=== PATIENT | male | born 1950 | race Caucasian/White ===

== ENCOUNTER 2024-10-24 18:56 | Observation (INO) | payer MEDICARE, OTHER, SELFPAY ==
[2024-10-24 14:25] VITALS: BP 172/84
[2024-10-24 14:32] LABS: Glucose - Point of Care 106 mg/dl (70-99)
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
[2024-10-24 16:37] VITALS: BP 148/68
[2024-10-24 16:50] LABS: % Basophils 0.2 % (0-2); % Eosinophils 0.1 % (0-6); % Immature Granulocytes 0.3 % (0-0.5); % Lymphocytes 13.1 % (20.5-51.1); % Monocytes 5.1 % (1.7-9.3); % Neutrophils 81.2 % (42.2-75.2); Absolute Lymphocytes 1.2 10^3/uL (1.2-3.4); Absolute Monocytes 0.5 10^3/uL (0.1-0.6); Absolute Neutrophils 7.2 10^3/uL (1.4-6.5); Hematocrit 43.4 % (39.0-52.0); Hemoglobin 15.5 g/dL (13.0-18.0); Mean Corp Hgb Conc. 35.7 g/dL (33.0-37.0); Mean Corpuscular Hgb 31.9 pg (27.0-31.0); Mean Corpuscular Volume 89.3 fL (80.0-94.0); Mean Platelet Volume 9.6 fL (7.4-10.4); Nucleated Red Blood Cells % 0 % (-); Platelet Count 141 10^3/uL (130-400); Red Blood Cell Count 4.86 10^6/uL (4.70-6.10); Red Cell Dist. Width 12.8 % (11.5-14.5); White Blood Cell Count 8.9 10^3/uL (4.8-10.8)
[2024-10-24 17:00] VITALS: BP 145/71
[2024-10-24 17:07] LABS: ALT (SGPT) 17 U/L (0-50); AST (SGOT) 29 U/L (17-59); Albumin 4.1 g/dl (3.5-5.0); Alkaline Phosphatase 67 U/L (38-126); Blood Urea Nitrogen 22 mg/dl (9-20); Calcium 9.7 mg/dl (8.4-10.2); Carbon Dioxide 32 mmol/L (22-30); Chloride 100 mmol/L (98-107); Glucose 105 mg/dl (70-99); Potassium 4.4 mmol/L (3.5-5.1); Sodium 136 mmol/L (135-145); Total Bilirubin 1.4 mg/dl (0.2-1.3); Total Protein 6.6 g/dl (6.3-8.2); eGFR > 60.00
[2024-10-24 17:20] LABS: INR 1.01; PT 13.6 Sec (11.4-14.6)
[2024-10-24 17:21] LABS: APTT 28.4 Sec (23.4-35.0)
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
[2024-10-24 18:00] VITALS: BP 154/76
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
[2024-10-24 18:57] LABS: Magnesium 1.7 mg/dl (1.6-2.3)
[2024-10-24 19:02] VITALS: BMI 27.0
[2024-10-24] MEDS: LOW STRENGTH ASPIRIN 81 MG PO (19:41)
[2024-10-24 20:20] VITALS: BP 165/78; BMI 26.5
[2024-10-24 20:46] LABS: Direct Bilirubin 0.3 mg/dl (0.0-0.4)
[2024-10-24 23:30] VITALS: BP 163/82
[2024-10-25 00:30] LABS: Amphetamines Negative (Negative); Barbiturates Negative (Negative); Benzodiazepines Negative (Negative); Buprenorphine Negative (Negative); Cocaine Negative (Negative); Marijuana Negative (Negative); Methadone Negative (Negative); Methamphetamines Negative (Negative); Opiates Negative (Negative); Phencyclidine Negative (Negative); Tricyclic Antidepressants Negative (Negative)
[2024-10-25 03:30] VITALS: BP 150/76
[2024-10-25 05:43] LABS: HDL Cholesterol 27 mg/dl; LDL Cholesterol, Calculated 110 mg/dl; Total Cholesterol 171 mg/dl (50-199); Triglyceride 173 mg/dl (10-149); Very Low Density Lipoprotein 34 mg/dl (0-30)
[2024-10-25 06:00] VITALS: BMI 26.4
[2024-10-25 07:00] VITALS: BP 146/75
[2024-10-25] MEDS: LOW STRENGTH ASPIRIN 81 MG PO (08:56)
[2024-10-25 09:41] LABS: Glycohemoglobin (HgbA1c) 5.6 % (4.0-5.6)
--- NOTE | 2024-10-25 10:18 | PTOTSP ---
Addendum entered and electronically signed by ST Renee 10/25/24 10:27:
Addendum to plan:
Patient appears to be demonstrating his baseline functioning from a speech standpoint, TELEGRAPH OFFICE ROUTE AIDE will sign off at this time. Please re-consult if clinically indicated.
Original Note:
Speech Therapy
Presentation: Patient's speech and language appeared to be WNL during informal conversations with the TELEGRAPH OFFICE ROUTE AIDE. Patient denied any communicative deficits.
Swallowing Function: TELEGRAPH OFFICE ROUTE AIDE observed patient with several bites of regular consistency solids and sips (straw) of thin liquids in which patient appeared to tolerate as he did not exhibit any overt clinical s/sx of aspiration or difficulty with
mastication. Patient denied any dysphagia complaints.
Per RN, patient tolerated medications whole with thin liquids and meal tray (reg/ thin).
Recommendations:
1) Regular consistency solids and thin liquids
2) Standard aspiration precautions
3) Medications as tolerated
Plan: TELEGRAPH OFFICE ROUTE AIDE will continue to follow; pending hospitalization.
--- NOTE | 2024-10-25 10:28 | CM ---
Spoke with patient's daughter to obtain information for assessment. Patient lives with his in two story home with two steps to enter. He is independent with all of his ADLs, personal care, dressing and bathing. 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
clean and do laundry. He drives and can get to appointments and so his own shopping. He has never had VN services. He has not been to a SNF.
He has a prescription plan and uses, [facility] for all of his medications.
OBS letter reviewed, signed and on chart.
Plan: Case management will continue to follow and assist with discharge planning. Hopefully home no needs.
--- NOTE | 2024-10-25 10:32 | W.PN.NEURO.1 ---
Today's Communication / Plan
-
.
Subjective/Objective
Subjective Data
Date of Service: October 25, 2024
Neurology follow-up note. Mr. Kwon reports no complaints.
His blood pressure has improved, remains afebrile. No reports of headaches, change in vision or strength.
Brain MRI�no acute abnormalities
PMH: h/o SVT, HTN, IGT, DLP, CKD, migraine headache, BCC, T3 N1 M0 sigmoid adenocarcinoma (2010, status post chemo), urolithiasis, polyneuropathy.
PSH: sigmoidectomy, lithotripsy, left [id number]-[id number](removed), right inguinal hernia repair
SH: Non-smoker,
FH: Mother at the age of 92, father at the age of 87 from stroke.
All: Epinephrine
ROS: Constitutional: Negative. Negative for chills, fever and unexpected weight change.
HENT: Positive for hearing impairment
Eyes: Negative. Negative for photophobia, pain and visual disturbance.
Respiratory: Negative for cough, choking and shortness of breath.
Cardiovascular: Negative for chest pain, palpitations and leg swelling.
Gastrointestinal: Negative for abdominal pain and vomiting.
Endocrine: Negative. Negative for cold intolerance.
Genitourinary: Negative for dysuria, flank pain and urgency.
Musculoskeletal: Negative for back pain, gait problem, neck pain and neck stiffness.
Skin: Negative for rash.
Allergic/Immunologic: Negative. Negative for immunocompromised state.
Neurological: Positive for transient encephalopathy, chronic distal paresthesias
Psychiatric/Behavioral: Negative for behavioral problems, confusion and hallucinations.
General: Well developed. In no acute distress.
Cardio: Regular rate and rhythm without murmur. Extremities are without cyanosis or edema.
Neuro:
Mental Status: Alert, oriented to person, place, and date. Normal attention and recall. Good fund of knowledge. Follows complex requests across the midline. Comprehension, naming, and repetition intact. Anxious
Cranial Nerves: Pupils are equally round and reactive to light. EOMs full. Visual vasquez full to confrontation. No ptosis. No nystagmus. V1-V3 intact to light touch and pinprick bilaterally, symmetric. Face symmetric. Impaired hearing AU.
The palate elevated well. SCMs and traps 5/5. Tongue midline. No dysarthria.
Motor: Normal bulk and tone. No pronator or arm drift. Strength 5/5 throughout. No clonus.
Reflexes: 3+ throughout the upper extremities and 3 knees. 2/2 in AJs. Positive Yaritza's bilaterally plantar responses flexor bilaterally.
Sensory: Reduced vibration at the toes and preserved at the ankles.
Coordination: No dysmetria or tremor.
Gait: deferred
Assessment and Plan:
I. Recurrent spells of encephalopathy. CPS versus cardiac arrhythmias\\
II. History of SVT
III. 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
IV. Hyperreflexia
-Fall precautions
-Telemetry monitoring
-Brain MRI without reji
-Routine EEG (can be done as outpatient)
-Cardiology consult
-No driving until cleared by neurology
-Outpatient neurology follow-up.
I personally reviewed all radiology and labs along with past medical records pertinent to current medical problems. Total time spent in patient care is 37 minutes.
Thank you for allowing us to participate in the care of this patient. Please do not hesitate to contact us with any questions or concerns.
Objective Data
Vital Signs
Temp Pulse Resp BP Pulse Ox
36.5 C 52 18 146/75 99
10/25/24 07:00 10/25/24 07:00 10/25/24 07:00 10/25/24 07:00 10/25/24 07:00
Lab Results
10/24/24 16:32
10/24/24 16:32
PT 13.6 Sec (11.4-14.6) 10/24/24 16:32
INR 1.01 10/24/24 16:32
APTT 28.4 Sec (23.4-35.0) 10/24/24 16:32
Sodium 136 mmol/L (135-145) 10/24/24 16:32
Potassium 4.4 mmol/L (3.5-5.1) 10/24/24 16:32
BUN 22 mg/dl (9-20) H 10/24/24 16:32
Glucose 105 mg/dl (70-99) H 10/24/24 16:32
Calcium 9.7 mg/dl (8.4-10.2) 10/24/24 16:32
LDL Cholesterol, Calc 110 mg/dl 10/25/24 04:26
Ur Buprenorphine Negative (Negative) 10/25/24 00:08
Patient Allergies
epinephrine Allergy (Verified 10/24/24 14:28)
severe tachycardia
poison erick Allergy (Uncoded 10/24/24 14:28)
welts
Vital Signs and Labs
-
Vital Signs and Labs:
Vital Signs
Temp Pulse Resp BP Pulse Ox
36.6 C 54 18 149/82 97
10/25/24 11:00 10/25/24 11:00 10/25/24 11:00 10/25/24 11:00 10/25/24 11:00
Lab Results
10/24/24 16:32
10/24/24 16:32
PT 13.6 Sec (11.4-14.6) 10/24/24 16:32
INR 1.01 10/24/24 16:32
APTT 28.4 Sec (23.4-35.0) 10/24/24 16:32
Sodium 136 mmol/L (135-145) 10/24/24 16:32
Potassium 4.4 mmol/L (3.5-5.1) 10/24/24 16:32
BUN 22 mg/dl (9-20) H 10/24/24 16:32
Glucose 105 mg/dl (70-99) H 10/24/24 16:32
Calcium 9.7 mg/dl (8.4-10.2) 10/24/24 16:32
LDL Cholesterol, Calc 110 mg/dl 10/25/24 04:26
Ur Buprenorphine Negative (Negative) 10/25/24 00:08
Medications
-
Medications:
Generic Name Dose Route Start Last Admin
Trade Name Freq PRN Reason Stop Dose Admin
Aspirin 81 mg 10/25/24 08:00 10/25/24 08:56
Aspirin 81 Mg Chewable Tablet PO 11/22/24 07:59 81 mg
DAILY SHAWN Administration
Hydralazine HCl 5 mg 10/24/24 20:13
Hydralazine 20 Mg/Ml Vial IV 11/21/24 20:12
Q6HPRN PRN
sbp>210 or dbp>110
Home Medications
-
Home Medications
chlorthalidone 25 mg tablet 25 mg PO DAILY 10/24/24
metoprolol succinate 50 mg tablet,extended release 24 hr 50 mg PO DAILY 10/24/24
[2024-10-25 11:00] VITALS: BP 149/82
--- NOTE | 2024-10-25 13:35 | CON.CAR ---
Consultation
Consultation Request
Date/Time Consultation Requested: 10/25/24
Date/Time Consultation Performed: 10/25/24
Requesting Provider: Dr. Benedict
Performing Provider: Dr. Norris
Reason for Consultation: TIA
Medical History
-
Chief Complaint: Episode of confusion
History of Present Illness:
I had the pleasure to meet Jose Kwon in room 319�1 for cardiac evaluation of possible TIA symptoms. Jose is a 72-year-old gentleman who has remotely seen my colleague Dr. 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
adenosine to terminate in 2011. He has done well without recurrent arrhythmias; no history of ablation and has been maintained on metoprolol succinate 50 mg daily. He has a past medical history of colon/rectal cancer status post resection and
chemotherapy, kidney stones, and hypertension. He has no history of atrial fibrillation, known coronary artery disease, heart failure/cardiomyopathy, dyslipidemia, thyroid disease, or diabetes. He and his were driving back from [place] when
his noted that he was driving very slowly and asked him to seat cover cutter. He initially thought his driving was off because he suffers from neuropathy of his feet. Apparently his motions were slow and erratic with him going over the curb before
stopping. He was able to exit the car and walk unassisted without weakness to the passenger side. He reports that his and him did not notice any focal weakness, facial asymmetry, slurred speech or dysarthria. When he returned home he was
able to help his bring the groceries in from the car and started working on a puzzle with no further confusion symptoms. However, at the behest of his and son he went to urgent care and was later sent to the ER for further evaluation.
Fortunately he has had no recurrent neurologic symptoms.
.
CT head 10/24/24 with no acute intracranial abnormality. Small vessel chronic ischemic changes. Paranasal sinuses are clear. MRI of the brain 10/25/2024 with no acute intracranial abnormality with minimal age-related atrophy and small vessel ischemic
disease. EKG sinus bradycardia with right bundle branch block and left anterior fascicular block which is new when compared to 2015 study. Pertinent labs: Hemoglobin 15, WBC 8.9, platelets 141,000. Sodium 136, potassium 4.4. BUN and creatinine
22/1.2. Hemoglobin A1c 5.6. Total cholesterol 171, triglycerides 173, LDL 110, HDL 27. UDS negative
PMH: h/o SVT, HTN,migraine headache, BCC, T3 N1 M0 sigmoid adenocarcinoma (2010, status post chemo), urolithiasis, polyneuropathy.
PSH: sigmoidectomy, lithotripsy, left [id number](removed), right inguinal hernia repair
Past Medical History
Past Medical History: Other (See HPI)
Past Surgical History: Other (See HPI)
Social History
Tobacco: Non-Smoker
Alcohol: None
Drug: None
Personal:
Living: With Family
Employment: Retired (Previously worked for [employer])
Family History
Family History: Reviewed & Not Pertinent
Allergies / Home Medications
Allergy/AdvReac Type Severity Reaction Status Date / Time
epinephrine Allergy severe Verified 10/24/24 14:28
tachycardia
poison erick Allergy welts Uncoded 10/24/24 14:28
�Medication �Instructions �Recorded �Confirmed �Type
chlorthalidone 25 mg tablet 25 mg PO DAILY 10/24/24 10/24/24 History
metoprolol succinate 50 mg 50 mg PO DAILY 10/24/24 10/24/24 History
tablet,extended release 24 hr
Review of Systems
-
History Source: Patient
All other systems: Negative unless noted
Constitutional: No Symptoms
EENT: No Symptoms
Respiratory: No Symptoms
Cardiac: No Symptoms
Abdomen/GI: No Symptoms
: No Symptoms
Musculoskeletal: No Symptoms
Neurological: Other (Episode of confusion as reported in HPI)
Endocrine: No Symptoms
Hematologic/Lymphatic: No Symptoms
Physical Exam
Vital Signs
Temp Pulse Resp BP Pulse Ox
97.8 F 54 18 149/82 97
10/25/24 11:00 10/25/24 11:00 10/25/24 11:00 10/25/24 11:00 10/25/24 11:00
Lab Results
10/24/24 16:32
10/24/24 16:32
Physical Exam
General: Well Developed, Well Nourished, No Apparent Distress and Comfortable
HEENT: Normocephalic, Anicteric and Moist Mucous Membranes
Respiratory: Clear and Non Labored Respirations; Negative Wheezes, Crackles or Rhonchi
Cardiac: S1/S2 and Regular Rhythm; Negative Murmur, Rub, Peripheral Edema or JVD
GI: Soft, Non Tender, Non Distended and Normal Bowel Sounds
Neuro: AO x 3 and Nonfocal/Grossly Intact
Psych: Calm
Impression / Plan
-
Change Agent: Remotely seen by Dr. Zhou
Impression:
Episode of confusion, possible TIA
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
Abnormal EKG with new right bundle branch block/left anterior fascicular block when compared to 2015 study
Sinus bradycardia on metoprolol Succinate
Hypertension
History of colon/rectal cancer status post resection and chemotherapy
Polyneuropathy
2D echocardiogram 10/14/2014: Normal biventricular size and systolic function with EF 55-60% and no regional wall motion abnormalities. No hemodynamically significant valve disease.
Plan:
Episode of confusion, possible TIA
-Neurology consult reviewed
-CT and brain imaging without evidence of stroke and otherwise unremarkable except for small vessel ischemic change
-Telemetry sinus bradycardia without Significant tacky or bradycardia arrhythmia
-Will hold metoprolol succinate Given bradycardia and chlorthalidone Given concern for dehydration
-Start amlodipine 5 mg daily; goal normotension
-Continue aspirin 81 mg daily
-Start atorvastatin 20 mg daily with goal LDL given concern for TIA less than 70 mg/dL
-Recommend 2D echocardiogram with bubble study and an outpatient 2-week patch monitor such as rhythm Star
-Reiterated neurology's recommendations not to drive until he is cleared by neurology
-Patient is requesting to go home; cardiac studies can be arranged following discharge
-Will arrange cardiac follow-up
Data Reviewed
-
EKG: Report Reviewed by me
Radiology: Report Reviewed by me
CT Scan: Report Reviewed by me
Labs: Labs Reviewed by me
Old Records: Reviewed
--- NOTE | 2024-10-25 13:38 | W.PN.HOSP.TC ---
Today's Communication/Plan
-
MRI of the brain
Cardiology consult
DC plan
Assessment / Plan
Assessment / Plan
Acute confusional episode without obvious neurological deficit. Remains nonfocal. Rule out TIA. Rule out arrhythmia.
cw telemetry.
Continue with aspirin given in the ER. Check an MRI of the brain without contrast -pending
Appreciate neurology input.
Llipid panel noted - statins if ruled in
BP is ok; HbA1c is ok.
Consult cardiology
EKG shows right bundle branch block and left intrafascicular block which is new. Is also sinus bradycardia which could be related to metoprolol use.
Hypertension-hold metoprolol and hydrochlorothiazide combination and follow blood pressure closely.
Full code
Anticipated Discharge: Today
Subjective/Interval History
-
Date of Service: October 25, 2024
No further events. No new symptoms.
Objective Data
-
Vital Signs:
Vital Signs
Temp Pulse Resp BP Pulse Ox
97.8 F 54 18 149/82 97
10/25/24 11:00 10/25/24 11:00 10/25/24 11:00 10/25/24 11:00 10/25/24 11:00
Review of Systems
-
Constitutional: Denies Fever
Respiratory: Denies Trouble Breathing
Cardiac: Denies Chest Pain
Abdomen/GI: Denies Abdominal Pain, Nausea or Vomiting
Neuro: Denies Dizzy, Headache, Weakness, Numbness, Ataxia or Tremors
Physical Exam
-
Neuro: AO x 3 and No Motor Deficits; Negative Slurred Speech or Facial Droop
Psych: Calm; Negative Confused or Agitated
Data Reviewed
-
Labs: Labs Reviewed by me
--- NOTE | 2024-10-25 14:45 | W.DCSUMMARY ---
Discharge Summary
Discharge Data
Date of Admission: 10/24/24
Date of Discharge: 10/25/24
-
Pending Results: No
Hospital Course
Primary diagnosis:
Acute brief confusional episode
Sinus bradycardia on betablocker
Secondary diagnosis:
Essential hypertension
Hospital course:
74-year-old gentleman presented with a brief confusional episode without other associated neurological deficits. It was short episode and was back to normal before coming to the hospital. Concern was to rule out a TIA/CVA. He was put on aspirin
and had an MRI of the brain which was negative. He does have risk factor of hypertension. Neurology also wants to get an EEG as an outpatient. But in meantime wants to continue with aspirin till evaluation is complete.
On arrival he was also noted to be bradycardic and EKG showed a right bundle branch block with left anterior fascicular block which is new for him. He takes metoprolol and unclear if bradycardia was related to that. Cardiology recommended Holter
monitoring which they will arrange as an outpatient also recommended echo with bubble which will be done as an outpatient. Antihypertensives were changed to Norvasc on this admission. Cardiology recommended initiating on statins. His LDL was 110
and total cholesterol was 171. HDL was 27.
Advised no driving till cleared by neurology
Consultants on board:
Neurology-Nguyen Costa
Cardiology-maria fernanda Talamantes
Discharge Plan
-
Patient Disposition: Home (Routine Discharge)
Discharge Diagnosis/Procedures: Transient confusional episode - no evidence of stroke
Diet: 2 Gram Sodium
Activity: As tolerated
Driving Restrictions: Not until seen by your Dr
Bathing Restrictions: None
Referrals:
Nguyen Melgoza MD [Active] - in one month (Call neurology office to schedule EEG )
Bhavik-Germania Madden PA [Family Provider] - in less than 1 week
Maria Fernanda Norris DO [Active] - in one to two weeks (Call office to arrange for holter monitoring and Echocardiogram)
Prescriptions:
New
atorvastatin 20 mg Tablet
20 mg PO QPM Qty: 30 0RF
amlodipine 5 mg Tablet
5 mg PO DAILY Qty: 30 0RF
aspirin 81 mg Tablet,Chewable
81 mg PO DAILY Qty: 30 0RF
Discontinued
metoprolol succinate 50 mg Tablet Extended Release 24 Hr
50 mg PO DAILY
chlorthalidone 25 mg Tablet
25 mg PO DAILY
Discharge Orders:
Discharge Patient (As Directed); Ordered 10/25/24
Ordered By: Theodore Benedict
Discharge Date and Time
Print Language: UPPER SORBIAN
[2024-10-25 15:00] VITALS: BP 166/77
== END 2024-10-25 15:47 | disposition home or self-care (01) ==
LOC: 3 WEST ACU 18:56
PROVIDERS: ADMITTING PHYSICIAN Internal Medicine; CONSULT PHYSICIAN Internal Medicine Cardiovascular Disease; CONSULT PHYSICIAN Psychiatry & Neurology Neurology; EMERGENCY PHYSICIAN Emergency Medicine; FAMILY PHYSICIAN Physician Assistant
DX: R41.0 Disorientation, unspecified (principal); R47.81 Slurred speech; I45.2 Bifascicular block; R00.1 Bradycardia, unspecified; R29.2 Abnormal reflex; G93.40 Encephalopathy, unspecified; I12.9 Hypertensive chronic kidney disease with stage 1 through stage 4 chronic kidney disease, or unspecified chronic kidney disease; J34.1 Cyst and mucocele of nose and nasal sinus; G31.9 Degenerative disease of nervous system, unspecified; I67.82 Cerebral ischemia; G62.9 Polyneuropathy, unspecified; Z88.8 Allergy status to other drugs, medicaments and biological substances; Z86.79 Personal history of other diseases of the circulatory system; Z90.49 Acquired absence of other specified parts of digestive tract; Z79.899 Other long term (current) drug therapy; Z85.048 Personal history of other malignant neoplasm of rectum, rectosigmoid junction, and anus; Z87.442 Personal history of urinary calculi; Z92.21 Personal history of antineoplastic chemotherapy; Z79.82 Long term (current) use of aspirin; Z82.3 Family history of stroke
CPT/HCPCS: 70450; 70551; 80053; 80061; 80306; 82248; 82962; 83036; 83735; 85025; 85610; 85730; 92610; 93005; 99285; G0378

== ENCOUNTER → 2024-10-30 10:50 | Outpatient (REF) | payer MEDICARE, OTHER, SELFPAY ==
[2024-10-30 14:10] LABS: TSH Reflex To Free T4 2.57 uIU/ml (0.47-4.68)
[2024-10-30 14:13] LABS: Ferritin 79.9 ng/ml (17.9-464.0)
[2024-10-30 14:28] LABS: Vitamin B12 358 pg/ml (239-931)
== END ==
LOC: HWLAB 10:50
PROVIDERS: ATTENDING PHYSICIAN Nurse Practitioner Adult Health; FAMILY PHYSICIAN Physician Assistant
DX: R41.0 Disorientation, unspecified (principal); R56.9 Unspecified convulsions; G62.9 Polyneuropathy, unspecified; E53.8 Deficiency of other specified B group vitamins; N18.31 Chronic kidney disease, stage 3a
CPT/HCPCS: 36415; 82607; 82728; 84443

== ENCOUNTER → 2024-11-02 10:01 | Outpatient (REF) | payer MEDICARE, OTHER, SELFPAY | LOC: RCS 10:01 | PROVIDERS: ATTENDING PHYSICIAN Internal Medicine Cardiovascular Disease; FAMILY PHYSICIAN Physician Assistant | DX: G45.9 Transient cerebral ischemic attack, unspecified (principal); I10 Essential (primary) hypertension | CPT/HCPCS: 93307 ==

== ENCOUNTER → 2024-11-05 07:41 | Outpatient (REF) | payer MEDICARE, OTHER, SELFPAY ==
--- NOTE | 2024-11-05 14:35 | EEG.RPT ---
Electroencephalogram Report
Recording
Date of EE11/05/24
Type of EEG: Routine
Length of EEG recordin minutes
Done with Video Recording: Yes
Patient Status: Outpatient
Recording Conditions: Awake, Drowsy and Asleep
Hyperventilation Performed: Yes
Photic Stimulation Performed: Yes
Report
GREATER THAN 1 HOUR EEG INTERPRETATION:
Unremarkable EEG for age
CLINICAL CORRELATION:
A normal EEG does not rule out a diagnosis of epilepsy. If clinical suspicion for seizure persists, a prolonged recording may be warranted.
Clinical correlation is advised.
METHODS:
A 21 channel digitized electroencephalogram (EEG) was performed using the 10/20 international system of electrode placement and one-lead of ECG recorded. The [email or web address] quantitative EEG system was utilized.
ELECTROENCEPHALOGRAPHER IMPRESSION(S):
Quality of study
Good
Background
There was an unremarkable anterior-posterior voltage gradient of alpha frequency.
With eye opening the background activity changed to a low voltage mixture of frequencies.
There were no significant asymmetries of background activity noted.
Sleep
Drowsiness present
Stage 1 present
Stage 2 present
Hyperventilation
No activation
Photic Stimulation
No activation
ECG
Normal sinus rhythm
== END ==
LOC: EEG 07:41
PROVIDERS: ATTENDING PHYSICIAN Nurse Practitioner Adult Health; FAMILY PHYSICIAN Physician Assistant
DX: R41.0 Disorientation, unspecified (principal); G45.9 Transient cerebral ischemic attack, unspecified
CPT/HCPCS: 93880; 95813

== ENCOUNTER → 2024-12-23 09:53 | Outpatient (REF) | payer MEDICARE, OTHER, SELFPAY | LOC: MRI 09:53 | PROVIDERS: ATTENDING PHYSICIAN Nurse Practitioner Adult Health; FAMILY PHYSICIAN Physician Assistant | DX: R41.0 Disorientation, unspecified (principal); R56.9 Unspecified convulsions | CPT/HCPCS: 70553; A9575 ==

== ENCOUNTER → 2025-02-12 08:21 | Outpatient (REF) | payer MEDICARE, OTHER, SELFPAY ==
[2025-02-12 09:34] LABS: % Basophils 0.7 % (0-2); % Immature Granulocytes 0.2 % (0-0.5); % Monocytes 10.6 % (1.7-9.3); % Neutrophils 58.5 % (42.2-75.2); Absolute Eosinophils 0.1 10^3/uL (0-0.7); Absolute Lymphocytes 1.7 10^3/uL (1.2-3.4); Absolute Monocytes 0.6 10^3/uL (0.1-0.6); Absolute Neutrophils 3.4 10^3/uL (1.4-6.5); Hematocrit 42.6 % (39.0-52.0); Hemoglobin 14.9 g/dL (13.0-18.0); Mean Corpuscular Hgb 31.2 pg (27.0-31.0); Mean Corpuscular Volume 89.1 fL (80.0-94.0); Mean Platelet Volume 9.5 fL (7.4-10.4); Nucleated Red Blood Cells % 0 % (-); Platelet Count 141 10^3/uL (130-400); Red Blood Cell Count 4.78 10^6/uL (4.70-6.10); Red Cell Dist. Width 12.7 % (11.5-14.5); White Blood Cell Count 5.8 10^3/uL (4.8-10.8)
[2025-02-12 10:14] LABS: ALT (SGPT) 20 U/L (0-50); AST (SGOT) 22 U/L (17-59); Albumin 4.3 g/dl (3.5-5.0); Alkaline Phosphatase 78 U/L (38-126); Blood Urea Nitrogen 23 mg/dl (9-20); Calcium 9.4 mg/dl (8.4-10.2); Carbon Dioxide 27 mmol/L (22-30); Chloride 108 mmol/L (98-107); Glucose 100 mg/dl (70-99); HDL Cholesterol 30 mg/dl; LDL Cholesterol, Calculated 53 mg/dl; Potassium 4.3 mmol/L (3.5-5.1); Sodium 141 mmol/L (135-145); Total Bilirubin 1.4 mg/dl (0.2-1.3); Total Cholesterol 102 mg/dl (50-199); Total Protein 6.4 g/dl (6.3-8.2); Triglyceride 97 mg/dl (10-149); Very Low Density Lipoprotein 19 mg/dl (0-30); eGFR 58.01
== END ==
LOC: HWLAB 08:21
PROVIDERS: ATTENDING PHYSICIAN Physician Assistant
DX: I10 Essential (primary) hypertension (principal); E78.00 Pure hypercholesterolemia, unspecified; D72.9 Disorder of white blood cells, unspecified
CPT/HCPCS: 36415; 80053; 80061; 85025